=== PATIENT | female | born 1950 | race African-American/Black ===

== ENCOUNTER → 2023-01-25 10:18 | Outpatient (BNVA) | payer MEDICARE, SELFPAY | PROVIDERS: PCP Pediatrics; Visit Provider Neurological Surgery | DX: M48.062 Spinal stenosis, lumbar region with neurogenic claudication (principal) | CPT/HCPCS: 99202 ==

== ENCOUNTER 2023-02-16 05:42 | Day surgery (SDC) | payer MEDICARE, SELFPAY ==
--- NOTE | 2023-02-02 | ECG_ITS ---
Test Reason : PREOP Blood Pressure : / mmHG Vent. Rate : 076 BPM Atrial Rate : 076 BPM P-R Int : 160 ms QRS Dur : 094 ms QT Int : 364 ms P-R-T Axes : 045 -19 003 degrees QTc Int : 409 ms Normal sinus rhythm Incomplete right bundle branch block Moderate voltage criteria for LVH, may be normal variant ( R in aVL , Abe product ) Borderline ECG No previous ECGs available Referred By: Belinda Morrison Electronically Signed By:Oni Smallwood
[2023-02-02 12:06] VITALS: BP 120/75; PULSE 83; RESP 18; O2SAT 98; BMI 35.9
[2023-02-02 13:47] LABS: Hematocrit 36.1 % (37.0-47.0); Hemoglobin 11.7 g/dl (12.0-16.0); Mean Corpuscular HGB Conc 32.4 g/dl (31.0-35.0); Mean Corpuscular Hemoglobin 31.2 pg (27.0-33.0); Mean Corpuscular Volume 96.3 fL (80.0-98.0); Mean Platelet Volume 9.2 fL (9.4-12.3); Platelet Count 220 X10*3/uL (160-400); Red Blood Count 3.75 X10*6/uL (4.20-5.50); Red Cell Distribution Width 13.4 % (11.0-16.0); White Blood Count 13.3 X10*3/uL (4.8-10.8)
[2023-02-02 14:10] LABS: Anion Gap 11 (12-20); Blood Urea Nitrogen 17 mg/dL (9-16); Carbon Dioxide 31 mmol/L (22-29); Chloride 106 mmol/L (96-108); Creatinine Clr Calc Pharmacy 64.5; Estimated Glomerular Filt Rate > 60; Glucose Random 89 mg/dL (60-115); Potassium 4.1 mmol/L (3.3-5.1); Sodium 144 mmol/L (135-145)
[2023-02-16] VITALS (14 sets, daily range): BP systolic 142–187; BP diastolic 60–97; PULSE 66–81; RESP 16–20; TEMP 36.4–36.8; O2SAT 92–100
--- NOTE | ~2023-02-16 | FL_ITS ---
EXAMINATION: XR FLUOROSCOPY WITH IMAGES CLINICAL INFORMATION: L3-L4 lumbar discectomy and decompression COMPARISON: None available. TECHNIQUE: Fluoroscopy Supervised By: Dr. King. Fluoroscopy Time: 0.0 minutes. Cumulative Dose: 3.81 mGy. DAP: 0.752 Gycm2. Images: 2. FINDINGS: The initial image reveals a posterior probe posterior L4 vertebra. The subsequent image reveals no needle positioned at the L3-L4 disc level. There is loss of L3-L4, L4-L5 disc heights with ventral spondylosis. Minimal posterior spondylosis L4-L5 disc level is noted FL/FL guidance in OR IMPRESSION: Fluoroscopy was provided to referring physician for L3-L4 disc level discectomy and decompression.
[2023-02-16] MEDS: methocarbamoL 750 MG TABLET PO (07:05)
[2023-02-16] MEDS: Lactated Ringers 1,000 ML 100 ML IVCONT (07:05)
--- NOTE | 2023-02-16 07:23 | HO.ANESPROP2 ---
Documented by User: Belinda Morrison NP 02/14/23 14:58 HPI - Anesthesia Eval Consult details Narrative: 73yo F for L3-4 ,Laminectomy Lumbar Decompression 02/16/2301/2023 EKG borderline but no change 06/2022. Case reviewed with Dr Viera. OK to proceed. [facility] Active Problems Active Problems: All Active Problems (Updated 02/01/23 @ 13:43 by Elizabeth Espinal RN) Lumbar stenosis with neurogenic claudication (Acute) Past Medical History Medical History Asthma Bronchitis Cancer GERD (gastroesophageal reflux disease) HTN (hypertension) Hypercholesteremia Neuropathy Osteoarthritis Renal cyst Spinal stenosis Family History Family history of problems with anesthesia: No Surgical History Surgical History History of colon surgery Hx of hysterectomy Hx of spinal surgery History of Problems with Anesthesia: No Social History Social History Are you a primary child care supervisor to a significant other at home: No Do you presently have visiting nurse or other home services: No Patient Tobacco Use Status: Never used Tobacco Use of substances other than those prescribed or required for medical reasons: No Have you been hit, kicked, punched, or otherwise hurt by someone within the past year? If so, by whom?: No Are you DNR?: No Advance Directives: No Advance Directives Information Provided: Yes Advance Directives on File: No Recently lost weight without trying: No Eating poorly because of decreased appetite: No Nutrition Risks: No Nutritional Risk Patient : No : No Poor oral hygiene: Yes (partial upper and two front crowns) Narrative Narrative: No recent illness. Some increased asthma symptoms d/t seasonal allergies. No CP. Meds Allergies Allergy/AdvReac Type Severity Reaction Status Date / Time amoxicillin Allergy Intermediate Hives Verified 02/16/23 07:08 fluticasone AdvReac Nightmare Verified 02/16/23 07:08 Home Medications Medication Instructions Recorded Confirmed Last Taken Type albuterol sulfate 90 mcg/actuation 0 mcg inhalation BID PRN Wheezing 01/25/23 02/01/23 02/16/23 04:00 History aerosol inhaler amlodipine 2.5 mg tablet 2.5 mg PO DAILY 01/25/23 02/01/23 02/16/23 04:00 History atorvastatin 40 mg tablet 40 mg PO DAILY 01/25/23 02/01/23 Unknown History betamethasone dipropionate 0.05 % topical BID PRN Itching 01/25/23 Unknown History topical ointment cetirizine 10 mg tablet 10 mg PO DAILY PRN Allergy Symptoms 01/25/23 02/01/23 Unknown History fluocinonide 0.05 % topical ml topical BID PRN Itching 01/25/23 Unknown History solution gabapentin 600 mg tablet 600 mg PO TID 01/25/23 02/01/23 02/16/23 04:00 History meloxicam 15 mg tablet 15 mg PO DAILY PRN pain 01/25/23 02/01/23 02/09/23 History montelukast 10 mg tablet 10 mg PO BEDTIME 01/25/23 02/01/23 Unknown History omeprazole 40 mg capsule,delayed 40 mg PO QAM 01/25/23 02/01/23 02/16/23 04:00 History release oxycodone 5 mg tablet 5 mg PO Q4-5H PRN Pain 01/25/23 02/01/23 Unknown History budesonide-formoterol HFA 160 2 puff inhalation BID PRN Wheezing 02/02/23 02/02/23 02/16/23 04:00 History mcg-4.5 mcg/actuation aerosol inhaler (Symbicort) cholecalciferol (vitamin D3) 50 50 mcg PO DAILY 02/02/23 02/02/23 Unknown History mcg (2,000 unit) capsule (Vitamin D3) vitamin B complex 1 tab PO DAILY 02/02/23 02/02/23 Unknown History Exam Exam Date and Time: February 02, 2023 1232 Height,Weight and Vital Signs: Height 5 ft 4 in Weight 94.801 kg Last Vital Signs Pulse 83 02/02/23 12:06 Resp 18 02/02/23 12:06 BP 120/75 02/02/23 12:06 Pulse Ox 98 02/02/23 12:06 O2 Del Method Room Air 02/02/23 12:06 Pertinent Lab Results Pertinent Lab Results: Lab Results 02/02/23 02/02/23 Range/Units 13:21 13:21 WBC 13.3 H (4.8-10.8) X10*3/uL RBC 3.75 L (4.20-5.50) X10*6/uL Hgb 11.7 L (12.0-16.0) g/dl Hct 36.1 L (37.0-47.0) % MCV 96.3 (80.0-98.0) fL MCH 31.2 (27.0-33.0) pg MCHC 32.4 (31.0-35.0) g/dl RDW 13.4 (11.0-16.0) % Plt Count 220 (160-400) X10*3/uL MPV 9.2 L (9.4-12.3) fL Absolute Nucleated RBC 0.000 (0.0-0.012) X10*3/uL Nucleated RBC % (auto) 0.0 (0.0-0.2) /100WBC Sodium 144 (135-145) mmol/L Potassium 4.1 (3.3-5.1) mmol/L Chloride 106 (96-108) mmol/L Carbon Dioxide 31 H (22-29) mmol/L Anion Gap 11 L (12-20) BUN 17 H (9-16) mg/dL Creatinine 0.88 (0.5-1.4) mg/dL Estim Creat Clear Calc 64.5 Estimated GFR > 60 Random Glucose 89 (60-115) mg/dL Calcium 10.0 (8.4-10.2) mg/dL Narrative Narrative: EKG 01/2023 Vent. Rate : 076 BPM ? ? Atrial Rate : 076 BPM ?? P-R Int : 160 ms? QRS Dur : 094 ms ? ? QT Int : 364 ms ? ? ? P-R-T Axes : 045 -19 003 degrees ?? QTc Int : 409 ms ? Normal sinus rhythm Incomplete right bundle branch block Moderate voltage criteria for LVH, may be normal variant ( R in aVL , Abe product ) Borderline ECG No previous ECGs available ECHO 05/2022 Nml LV size and systolic function. LVEF 55-60% Basal inferior wall and basal inferolateral septum appear hypokinetic. Grade 1 abnormal LV diastolic function. Nml RV size and function. No hemodynamically significant valve disease Mild ascending aorta dilation (4.3sm) Exercise Nuclear Perfusion stress test 07/2022 Able to exercise for over 7 minutes on modified protocol. No CP, but stopped d/t low back pain. 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 Airway Mallampati Class: III TM Dist: >3cm Neck ROM: Full Partial: Upper Adult Head Mouth w/Numbe Teeth: 1. 8&9 capped Heart: RRR Lungs: CTAB Assessment and Plan Assessment Anesthesia Assessment: Anesthesia Plan Discussed and PAT Visit Final Anesthetic Review Family History of Problems with Anesthesia: No History of Problems with Anesthesia: No Documented by User: Rosa Brown DO 02/16/23 07:23 [facility] Past Medical History Medical History Asthma Bronchitis Cancer GERD (gastroesophageal reflux disease) HTN (hypertension) Hypercholesteremia Neuropathy Osteoarthritis Renal cyst Spinal stenosis Surgical History Surgical History History of colon surgery Hx of hysterectomy Hx of spinal surgery Social History Social History Are you a primary child care supervisor to a significant other at home: No Do you presently have visiting nurse or other home services: No Patient Tobacco Use Status: Never used Tobacco Use of substances other than those prescribed or required for medical reasons: No Have you been hit, kicked, punched, or otherwise hurt by someone within the past year? If so, by whom?: No Are you DNR?: No Advance Directives: No Advance Directives Information Provided: Yes Advance Directives on File: No Recently lost weight without trying: No Eating poorly because of decreased appetite: No Nutrition Risks: No Nutritional Risk Patient : No : No Poor oral hygiene: Yes (partial upper and two front crowns) Meds Allergies Allergy/AdvReac Type Severity Reaction Status Date / Time amoxicillin Allergy Intermediate Hives Verified 02/16/23 07:08 fluticasone AdvReac Nightmare Verified 02/16/23 07:08 Home Medications Medication Instructions Recorded Confirmed Last Taken Type albuterol sulfate 90 mcg/actuation 0 mcg inhalation BID PRN Wheezing 01/25/23 02/01/23 02/16/23 04:00 History aerosol inhaler amlodipine 2.5 mg tablet 2.5 mg PO DAILY 01/25/23 02/01/23 02/16/23 04:00 History atorvastatin 40 mg tablet 40 mg PO DAILY 01/25/23 02/01/23 Unknown History betamethasone dipropionate 0.05 % topical BID PRN Itching 01/25/23 Unknown History topical ointment cetirizine 10 mg tablet 10 mg PO DAILY PRN Allergy Symptoms 01/25/23 02/01/23 Unknown History fluocinonide 0.05 % topical ml topical BID PRN Itching 01/25/23 Unknown History solution gabapentin 600 mg tablet 600 mg PO TID 01/25/23 02/01/23 02/16/23 04:00 History meloxicam 15 mg tablet 15 mg PO DAILY PRN pain 01/25/23 02/01/23 02/09/23 History montelukast 10 mg tablet 10 mg PO BEDTIME 01/25/23 02/01/23 Unknown History omeprazole 40 mg capsule,delayed 40 mg PO QAM 01/25/23 02/01/23 02/16/23 04:00 History release oxycodone 5 mg tablet 5 mg PO Q4-5H PRN Pain 01/25/23 02/01/23 Unknown History budesonide-formoterol HFA 160 2 puff inhalation BID PRN Wheezing 02/02/23 02/02/23 02/16/23 04:00 History mcg-4.5 mcg/actuation aerosol inhaler (Symbicort) cholecalciferol (vitamin D3) 50 50 mcg PO DAILY 02/02/23 02/02/23 Unknown History mcg (2,000 unit) capsule (Vitamin D3) vitamin B complex 1 tab PO DAILY 02/02/23 02/02/23 Unknown History Exam Exam Date and Time: February 16, 2023 0720 Height,Weight and Vital Signs: Height 5 ft 4 in Weight 94.801 kg Last Vital Signs Vital Signs Pulse Rate 83 02/02/23 12:06 Respiratory Rate 18 02/02/23 12:06 Blood Pressure 120/75 02/02/23 12:06 Pulse Oximetry 98 02/02/23 12:06 Oxygen Delivery Method Room Air 02/02/23 12:06 Temperature 97.5 F 02/16/23 07:09 Pulse Rate 81 02/16/23 07:09 Respiratory Rate 16 02/16/23 07:09 Blood Pressure 160/79 H 02/16/23 07:09 Pulse Oximetry 97 02/16/23 07:09 Oxygen Delivery Method Room Air 02/16/23 07:09 Pulse 83 02/02/23 12:06 Resp 18 02/02/23 12:06 BP 120/75 02/02/23 12:06 Pulse Ox 98 02/02/23 12:06 O2 Del Method Room Air 02/02/23 12:06 Airway Mallampati Class: II Adult Head Mouth w/Numbe Teeth: 1. 8&9 capped Assessment and Plan Final Anesthetic Review NPO: Yes ASA Class: II Final Preanesthetic Review: No Changes in Pt Med Stat, Meds/Allgs Chart Reviewed, Consent Obtained/Reviewed and Anes Risks/Benef Reviewed Patient Risk: Low Procedure Risk: Low Anesthetic Plan Anesthetic Plan: GA and Agree w/ Assess. and Plan Disposition: Standard PACU
--- NOTE | 2023-02-16 09:13 | PM.DS ---
DS: Providers Provider Date of Service: 02/16/23 Date of discharge: 02/16/23 Primary care physician: Garret Mcneil DO Admitting clinician: Angelo Craft DS: Diagnosis Discharge Diagnosis (1) Lumbar stenosis with neurogenic claudication: Status: Acute DS: Summary Time Spent with Patient Time attestation: Total time managing care of this patient today ____ minutes. Discharge coordination time: Less than 30 minutes Quality: Safe Use of Opioids Does Pt have an Active Cancer Diagnosis on the Problem List?: No Quality: Stroke Does the patient have a stroke diagnosis?: No Physical Exam Vital Signs: Vital Signs: Last Vital Signs Temp 97.5 F 02/16/23 07:09 Pulse 81 02/16/23 07:09 Resp 16 02/16/23 07:09 BP 160/79 H 02/16/23 07:09 Pulse Ox 97 02/16/23 07:09 O2 Del Method Room Air 02/16/23 07:09 BMI result Body Mass Index 35.9 Discharge Plan Discharge Patient Disposition: Home, Self-Care Referrals: Garret Mcneil DO [Primary Care Provider] - 1 Week Discharge Medications: New oxycodone 5 mg tablet 5 mg PO Q4H PRN (Reason: pain) Qty: 30 0RF Rx Instructions: Partial Fill upon patient request. docusate sodium [Colace] 100 mg capsule 100 mg PO BID Qty: 20 0RF Continued cholecalciferol (vitamin D3) [Vitamin D3] 50 mcg (2,000 unit) Capsule 50 mcg PO DAILY budesonide-formoterol [Symbicort] 160-4.5 mcg/actuation Hfa Aerosol Inhaler 2 puff INHALATION BID PRN (Reason: Wheezing) vitamin B complex Tablet 1 tab PO DAILY albuterol sulfate 90 mcg/actuation HFA aerosol inhaler 0 mcg inhalation BID PRN (Reason: Wheezing) cetirizine 10 mg tablet 10 mg PO DAILY PRN (Reason: Allergy Symptoms) atorvastatin 40 mg tablet 40 mg PO DAILY montelukast 10 mg tablet 10 mg PO BEDTIME gabapentin 600 mg tablet 600 mg PO TID omeprazole 40 mg capsule,delayed release(DR/EC) 40 mg PO QAM meloxicam 15 mg tablet 15 mg PO DAILY PRN (Reason: pain) amlodipine 2.5 mg tablet 2.5 mg PO DAILY betamethasone dipropionate 0.05 % ointment topical BID PRN (Reason: Itching) fluocinonide 0.05 % solution topical BID PRN (Reason: Itching) Discontinued oxycodone 5 mg tablet 5 mg PO Q4-5H PRN (Reason: Pain) Discharge Orders: Discharge Order (Routine); Ordered 02/16/23 Ordered By: Juancarlos Foss Diet: Advance to usual diet Activity on Discharge: As tolerated Activity Restrictions/Additional Instructions: After your spinal surgery we ask you to observe the following restrictions/guidelines: Activity: It is normal to feel some discomfort as you increase your activity, but that will improve with time. We ask you avoid heavy lifting or acitivities that cause pain. As a general rule, 8lbs is a safe limit for lifting right after surgery. Walk as much as you feel comfortable but not to exhaustion. You will feel extra tired the first few days after surgery. Stay well hydrated. It is OK to walk up and down stairs You may return to driving when you are off narcotics (such as vicodin, oxycodone, dilaudid, etc), and you are back to normal functional capacity. If you have any concerns please check with office before driving. Return to work is specific to each patient and each surgery, so please speak with your doctor/PA at first follow up. Please bring paperwork such as FMLA at that time if you need it filled out. Medications: We will give you a short supply of narcotics after surgery (usually one weeks worth). If you need more please call the office but do not use more than prescribed. You will need to give our office 48 hours notice if you need narcotics refilled and we do not fill narcotics on weekends or evenings. If you are on a narcotic, it is a good idea to take a stool softener such as colace or senna to avoid constipation If you take blood thinner such as aspirin, Plavix, Coumadin, Effient, Eliquis etc for conditions such as Afib, DVT, Pulmonary embolus, coronary disease, stents etc please speak with your surgeon about specific details as to when you can resume these medications. You can resume NSAIDs on post op day 1 (eg: Motrin, Naproxen, etc). Follow up: Please call the office, , after surgery to arrange a 3 week follow up for wound check. Wound Care: You may remove your dressing on the first day after surgery. You may leave open to air. Please do not remove the steri strips underneath. they will fall off on their own in one week. IT IS NORMAL FOR THE WOUND TO OOZE OR BE BLOODY FOR A FEW DAYS AFTER SURGERY. IF THIS HAPPENS JUST PLACE NEW DRESSING OVER IT TO AVOID STAINING CLOTHES. You may shower on post op day # 1 We ask that you do not let the water soak the wound. If it does get wet, just towel dry lightly. Please do not scrub your incision or place any type of chemical/ointment on the wound. No tub baths, pools or jacuzzis for one month. If you have any leaking or redness from your wound, or fevers, please call office
--- NOTE | 2023-02-16 09:24 | W.PM.OPN ---
Operative Note Operative Note Date of Service: 02/16/23 Narrative: Preoperative Diagnosis: L2-3 spinal stenosis Operation: L2-3 Laminotomy, Partial facetectomy and foraminotomy with use of microscope Consent Informed Consent was obtained for this operation. I have explained the nature, purpose and benefits of the operation. I have discussed the risks and benefit of the operation including possible complications or adverse events with patient/family. Alternative(s) were discussed with the patient with their relative benefits and risks as well as the consequences of not accepting the operation were included in obtaining consent. Surgeon: ISRAEL PORTILLO MD, PHD Procedure Assisted By: Juancarlos Foss Pac] Description of Procedure this 73-year-old female had a previous L4-5 decompression done at another institution. She came to my clinic complaining of recurrent neurogenic claudication of symptoms. An MRI shows severe LV 3 for spinal stenosis. The patient was offered a decompression. The procedure complications were explained. The patient was consented. The patient was brought to the operating room and endotracheally intubated. The patient was turned in prone position on the Lazaro frame. Prep and drape was done followed by timeout. Physician assistant education director provided access. A mid lumbar incision was made followed by release of the paravertebral muscle Bilateral to expose the L2-3 lamina and facet joints. An intraoperative x-ray was obtained to confirm the correct level. The microscope was brought in. I took over the procedure. The high-speed drill was used to do a L2-3 laminotomy until flavum ligament was reached. a 2. Kerrison was used to expand the laminotomy new fresh to the pedicles. The flavum and was opened and resected with a 3. Kerrison to decompress the underlying thecal sac. The flavum ligament was removed from the lateral recess to decompress the exiting L4 nerve roots bilaterally. A long nerve hook could be easily passed along the medial side of the pedicles as a sign of adequate decompression. The microscope was removed. Hemostasis was done. The physician assistant education director close the Incision in 2 layers. Steri-Strips were used to approximate incision. An OpSite with Tegaderm was used to cover the incision. All sponge needle counts were correct. Patient was extubated and transported in stable is to recovery room. Anesthesia: General Estimated Blood Loss (ml): 20 Complications: None Duration of Surgery: Under 60 Minutes Postoperative Plan: Discharge to home
== END 2023-02-16 12:55 | disposition home or self-care (01) ==
PROVIDERS: Nurse Practitioner; PCP Student in an Organized Health Care Education/Training Program; Visit Provider Neurological Surgery
PROC: (CPT 63047; principal; 2023-02-16 07:30)
DX: M48.062 Spinal stenosis, lumbar region with neurogenic claudication (principal); M19.90 Unspecified osteoarthritis, unspecified site; G62.9 Polyneuropathy, unspecified; J45.909 Unspecified asthma, uncomplicated; I10 Essential (primary) hypertension; E78.00 Pure hypercholesterolemia, unspecified; K21.9 Gastro-esophageal reflux disease without esophagitis; Z79.899 Other long term (current) drug therapy; Z88.1 Allergy status to other antibiotic agents
CPT/HCPCS: 63047; 36415; 80048; 85027; 93005; J0131; J0690; J1100; J1885; J2370; J2405; J2550; J3010

== ENCOUNTER → 2023-03-10 13:54 | Outpatient (BNVA) | payer MEDICARE, SELFPAY | PROVIDERS: PCP Student in an Organized Health Care Education/Training Program; Visit Provider Physician Assistant | DX: Z47.89 Encounter for other orthopedic aftercare (principal); M48.062 Spinal stenosis, lumbar region with neurogenic claudication | CPT/HCPCS: 99212 ==

== ENCOUNTER 2023-04-19 13:52 | Outpatient (AMB) | payer MEDICARE, SELFPAY ==
--- NOTE | 2023-04-19 14:07 | HO.SPINEOV ---
Intake Intake Visit Reasons: 6 week follow up Intake Note: Mrs. Garcia is here today for her 2nd post-op visit. Material Handling Supervisor Required: No Allergies amoxicillin Allergy (Intermediate, Verified 02/16/23 07:08) Hives fluticasone Adverse Reaction (Verified 02/16/23 07:08) Nightmare Assessment & Plan Assessment & Plan (1) Lumbar stenosis with neurogenic claudication: Code(s): M48.062 - Spinal stenosis, lumbar region with neurogenic claudication Plan Dear colleague, On 04/19/2023 I saw for 2nd postoperative visit your patient Carmelina Garcia. She underwent an L2-3 lumbar decompression for neurogenic claudication. Her symptoms are slowly improving. Two days ago was the 1st time that she had no pain during the whole day. She takes 2 Tylenol is a day. She still has weakness going up the stairs and numbness of her feet. I explained to the patient that go symptoms are to improve last. She is thinking of starting cycling, which I encouraged. I would like to follow up in 6 weeks. Thank you for letting me take care of your patient. Angelo Craft MD, PhD Spine Fellowship Trained Neurosurgeon Director, [facility] Coding Level of Care Code Global (23799) Diagnoses Lumbar stenosis with neurogenic claudication M48.062
== END 2023-04-19 14:40 | disposition home or self-care (01) ==
PROVIDERS: PCP Student in an Organized Health Care Education/Training Program; Visit Provider Neurological Surgery
DX: M48.062 Spinal stenosis, lumbar region with neurogenic claudication (principal)
CPT/HCPCS: 99024

== ENCOUNTER → 2023-04-19 13:52 | Outpatient (BNVA) | payer MEDICARE, SELFPAY | PROVIDERS: PCP Student in an Organized Health Care Education/Training Program; Visit Provider Neurological Surgery ==

== ENCOUNTER 2023-05-31 13:00 | Outpatient (AMB) | payer MEDICARE, SELFPAY ==
--- NOTE | 2023-05-31 13:15 | HO.SPINEOV ---
Intake Intake Visit Reasons: 6 week f/u Intake Note: Mrs. Garcia is her for her 6wk f/u. Rehabilitation Aide Required: No Allergies amoxicillin Allergy (Intermediate, Verified 02/16/23 07:08) Hives fluticasone Adverse Reaction (Verified 02/16/23 07:08) Nightmare Assessment & Plan Assessment & Plan (1) Lumbar stenosis with neurogenic claudication: Code(s): M48.062 - Spinal stenosis, lumbar region with neurogenic claudication Plan Dear colleague, On 05/31/2023, I saw for follow-up Carmelina Garcia. She is status post L2-3 decompression. She continues to complain of proximal leg weakness and she developed a new radiating pain to her right hip and down the outside of her right leg. The pain consult walking and standing. Cycling or bending forward completely release the symptoms. On exam, there is a grade 3/5 weakness of the iliopsoas bilaterally. Remainder of her neurological exam is normal. The patient continues to suffer from symptoms of neurogenic claudication. The new pain into her right leg is more an L5 dermatome. I would like to order a new MRI of the lumbar spine to assess the L2-3 region and as the right L5 nerve root. I will see her back after the MRI is done. I spent 20 minutes in this consult for history, physical exam and ordering Test Angelo Craft MD, PhD Spine Fellowship Trained Neurosurgeon Director, [facility] [place] [facility] Orders: Orders MR lumbar spine wo/w con Today M48.062 - Spinal stenosis, lumbar region with neurogenic claudication Medications: New diazepam (Valium) Take 2 tablets 30 minutes prior to MRI 5 mg (1/2 x 10 mg) PO DAILY 2 tabs 0RF Claustrophobia for MRI Coding Level of Care Code Est Pt Level 3 (82037) Diagnoses Lumbar stenosis with neurogenic claudication M48.062
== END 2023-05-31 13:40 | disposition home or self-care (01) ==
PROVIDERS: PCP Student in an Organized Health Care Education/Training Program; Visit Provider Neurological Surgery
DX: M48.062 Spinal stenosis, lumbar region with neurogenic claudication (principal)
CPT/HCPCS: 99213

== ENCOUNTER → 2023-05-31 13:00 | Outpatient (BNVA) | payer MEDICARE, SELFPAY | PROVIDERS: PCP Student in an Organized Health Care Education/Training Program; Visit Provider Neurological Surgery | DX: M48.062 Spinal stenosis, lumbar region with neurogenic claudication (principal) | CPT/HCPCS: 99212 ==

== ENCOUNTER 2023-07-12 11:26 | Outpatient (AMB) | payer MEDICARE, SELFPAY ==
--- NOTE | 2023-07-12 11:43 | HO.SPINEOV ---
Intake Intake Visit Reasons: Follow up MRI Intake Note: Mrs. Garcia is here today to discuss the results of her MRI. Outreach And Education Social Worker Required: No Allergies amoxicillin Allergy (Intermediate, Verified 02/16/23 07:08) Hives fluticasone Adverse Reaction (Verified 02/16/23 07:08) Nightmare Assessment & Plan Assessment & Plan (1) Neuroforaminal stenosis of lumbar spine: Code(s): M48.061 - Spinal stenosis, lumbar region without neurogenic claudication Plan Dear colleague, On 07/12/2023 I saw for follow-up Carmelina Garcia. She continues to complain of a right-sided pain that radiates in an L5 dermatome. Specifically goes from the buttock to the outside of her lower leg. She also mentions that she has difficulty lifting her right foot. A repeat MRI of the lumbar spine shows a right L5 foraminal stenosis in addition to the multilevel spondylosis and stenosis. Clinically, she suffering from an L5 radiculopathy most likely associated with the right L5 foraminal stenosis. I will refer her to for a diagnostic right L5 nerve block. I would like to follow-up with her 3 weeks after the injection. I spent 20 minutes in this consult for preparation, personal review of imaging and discussing plan of care. Thank you for letting me take care of your patient. Angelo Craft MD, PhD Spine Fellowship Trained Neurosurgeon Director, [facility] [place] Orders: Referrals Physiatry Referral M48.061 - Spinal stenosis, lumbar region without neurogenic claudication Coding Level of Care Code Est Pt Level 3 (55450) Diagnoses Neuroforaminal stenosis of lumbar spine M48.061
== END 2023-07-12 12:57 | disposition home or self-care (01) ==
PROVIDERS: PCP Student in an Organized Health Care Education/Training Program; Visit Provider Neurological Surgery
DX: M48.061 Spinal stenosis, lumbar region without neurogenic claudication (principal)
CPT/HCPCS: 99213

== ENCOUNTER → 2023-07-12 11:26 | Outpatient (BNVA) | payer MEDICARE, SELFPAY | PROVIDERS: PCP Student in an Organized Health Care Education/Training Program; Visit Provider Neurological Surgery | DX: M48.061 Spinal stenosis, lumbar region without neurogenic claudication (principal) | CPT/HCPCS: 99212 ==